=== PATIENT | male | born 1970 | race Hispanic/Latino ===

== ENCOUNTER → 2024-04-13 16:39 | Outpatient (CLI) | payer BC, SELFPAY ==
[2024-04-13 17:39] LABS: Influenza A - CEPHEID Flu A NEGATIVE (NEGATIVE); Influenza B - CEPHEID Flu B NEGATIVE (NEGATIVE); Respiratory Syncytial Virus Negative (Negative)
[2024-04-13 17:51] LABS: COVID-19 CEPHEID 4-PLEX PCR Negative (Negative)
== END ==
PROVIDERS: PCP Physician Assistant; Visit Provider Physician Assistant
DX: J02.9 Acute pharyngitis, unspecified (principal); R05.1 Acute cough
CPT/HCPCS: 0241U; 87070

== ENCOUNTER → 2024-04-13 16:56 | Outpatient (CLI) | payer BC, SELFPAY ==
--- NOTE | 2024-04-13 16:58 | DI.RAD.S_ITS ---
PROCEDURE: XR CHEST 2V INDICATIONS: cough x 2 weeks TECHNIQUE: 2 views of the chest were acquired. COMPARISON: [facility], CT, CT ANGIO CHEST PE, 01/12/2024, 22:55. [facility], CR, XR CHEST 1 VIEW, 01/12/2024, 19:53. [facility], CR, XR CHEST 1 VIEW, 05/31/2023, 11:56. FINDINGS: Surgical changes and devices: Sternotomy wires and mediastinal clips are seen. Lungs and pleura: Lungs are clear. No pleural effusions or pneumothorax. Mediastinum: Mediastinal contours are normal. Heart size is normal. Bones and chest wall: No suspicious bony abnormalities. Age-appropriate bony degenerative changes are seen. Soft tissues appear unremarkable. IMPRESSION: No acute plain film abnormality is seen. Dictated by: Guille Glez M.D. on 04/13/2024 at 16:24 Approved by: Guille Glez M.D. on 04/13/2024 at 16:26
== END ==
PROVIDERS: PCP Physician Assistant; Referring Provider Physician Assistant; Visit Provider Physician Assistant
DX: J02.9 Acute pharyngitis, unspecified (principal); R05.1 Acute cough
CPT/HCPCS: 0241U; 71046; 87070